=== PATIENT | male | born 1980 | race Caucasian/White ===

== ENCOUNTER 2016-09-27 13:22 | Observation (INO) | payer OTHER ==
[2016-09-26] MEDS: LACTATED RINGER'S 1000 ML INJ 1,000 ML IV SCH (21:30)
[~2016-09-27] VITALS: Ht 177.8 cm; Wt 93.8 kg
[2016-09-27] VITALS (7 sets, daily range): BP systolic 118–150; BP diastolic 67–88; PULSE 72–93; RESP 16–20; TEMP 97.9–98.5; O2SAT 92–99
[~2016-09-27 13:22] MED LIST: CIPR500T4 PO; COUG100S2 PO; NORC7.5T PO; ONDANSETRON HCL 4 MG/2 ML VIAL IV PUSH ONE; PROPOFOL 200 MG/20 ML AMP IV ONE
[2016-09-27] MEDS ORDERED: SODIUM CHLOR 0.9% 1000 ML INJ 1,000 ML IV SCH (14:17)
--- NOTE | 2016-09-27 14:19 | PD ---
HPI Chief Complaint: GI Complaint Time Seen by Provider: 13:54 Travel History International Travel<30 days: No Contact w/Intl Traveler<30days: No Traveled to known affect area: No PFSH Past Medical History Medical History: Denies Significant Hx Diminished Hearing: Yes Immunizations Current: No Tetanus Vaccination: Unknown Influenza Vaccination: No Past Surgical History Abdominal Surgery: Yes (bilateral inguinal hernia repairs) Ear Surgery: Yes (left ear surgery) Social History Alcohol Use: No Tobacco Use: Yes (1/2) Substance Use: Yes (POT) Allergies-Medications (Allergen,Severity, Reaction): Coded Allergies: Morphine (Verified Allergy, Severe, Anaphylaxis, 09/27/16) Reported Meds & Prescriptions Reported Meds & Active Scripts Active No Active Prescriptions or Reported Medications Data Data Last Documented VS Vital Signs Date Time Temp Pulse Resp B/P Pulse Ox O2 Delivery O2 Flow Rate FiO2 09/27/16 16:41 72 18 119/68 99 Room Air 09/27/16 13:31 98.5 Orders Complete Blood Count With Diff (09/27/16 14:17) Comprehensive Metabolic Panel (09/27/16 14:17) Lipase (09/27/16 14:17) Lactic Acid (09/27/16 14:17) Prothrombin Time / Inr (Pt) (09/27/16 14:17) Act Partial Throm Time (Ptt) (09/27/16 14:17) Urinalysis - C+S If Indicated (09/27/16 14:17) Iv Access Insert/Monitor (09/27/16 14:17) Ecg Monitoring (09/27/16 14:17) Oximetry (09/27/16 14:17) Ondansetron Inj (Zofran Inj) (09/27/16 14:30) Sodium Chlor 0.9% 1000 Ml Inj (Ns 1000 M (09/27/16 14:17) Sodium Chloride 0.9% Flush (Ns Flush) (09/27/16 14:30) Electrocardiogram (09/27/16 14:17) Ketorolac Inj (Toradol Inj) (09/27/16 14:30) Chest, Single Ap (09/27/16 ) Ct Abd/Pel W Iv Contrast(Rout) (09/27/16 ) Iohexol 350 Inj (Omnipaque 350 Inj) (09/27/16 16:28) Diet Npo (09/27/16 Dinner) Ampicillin-Sulbactam Inj (Unasyn Inj) (09/27/16 17:15) Admit Order (Ed Use Only) (09/27/16 ) Labs Laboratory Tests Test 09/27/16 09/27/16 11:20 15:00 White Blood Count 23.1 TH/MM3 Red Blood Count 5.41 MIL/MM3 Hemoglobin 16.1 GM/DL Hematocrit 47.3 % Mean Corpuscular Volume 87.4 FL Mean Corpuscular Hemoglobin 29.7 PG Mean Corpuscular Hemoglobin 34.0 % Concent Red Cell Distribution Width 12.4 % Platelet Count 320 TH/MM3 Mean Platelet Volume 7.7 FL Neutrophils (%) (Auto) 77.9 % Lymphocytes (%) (Auto) 12.7 % Monocytes (%) (Auto) 6.4 % Eosinophils (%) (Auto) 2.7 % Basophils (%) (Auto) 0.3 % Neutrophils # (Auto) 18.0 TH/MM3 Lymphocytes # (Auto) 2.9 TH/MM3 Monocytes # (Auto) 1.5 TH/MM3 Eosinophils # (Auto) 0.6 TH/MM3 Basophils # (Auto) 0.1 TH/MM3 CBC Comment AUTO DIFF Differential Comment AUTO DIFF CONFIRMED Prothrombin Time 11.4 SEC Prothromb Time International 1.0 RATIO Ratio Activated Partial 26.3 SEC Thromboplast Time Sodium Level 143 MEQ/L Potassium Level 4.0 MEQ/L Chloride Level 108 MEQ/L Carbon Dioxide Level 29.9 MEQ/L Anion Gap 5 MEQ/L Blood Urea Nitrogen 16 MG/DL Creatinine 0.98 MG/DL Estimat Glomerular Filtration 86 ML/MIN Rate Random Glucose 101 MG/DL Lactic Acid Level 1.0 mmol/L Calcium Level 9.3 MG/DL Total Bilirubin 1.0 MG/DL Aspartate Amino Transf 14 U/L (AST/SGOT) Alanine Aminotransferase 26 U/L (ALT/SGPT) Alkaline Phosphatase 66 U/L Total Protein 7.3 GM/DL Albumin 4.3 GM/DL Lipase 127 U/L Urine Collection Type CLEAN CATCH Urine Color YELLOW Urine Turbidity CLEAR Urine pH 5.5 Urine Specific [place] 1.018 Urine Protein NEG mg/dL Urine Glucose (UA) NEG mg/dL Urine Ketones 40 mg/dL Urine Occult Blood TRACE Urine Nitrite NEG Urine Bilirubin NEG Urine Leukocyte Esterase NEG Urine RBC 0-3 /hpf Urine Squamous Epithelial 0-5 /hpf Cells Urine Amorphous Sediment FEW Microscopic Urinalysis Comment CULT NOT INDICATED Urine Collection Time 1500 MDM Scripts No Active Prescriptions or Reported Meds Pj Alamo MD Sep 27, 2016 14:19
--- NOTE | 2016-09-27 14:29 | PD ---
HPI Chief Complaint: GI Complaint Time Seen by Provider: 13:54 Travel History International Travel<30 days: No Contact w/Intl Traveler<30days: No Traveled to known affect area: No History of Present Illness HPI 36 year old male presenting with diffuse abdominal pain starting 5 hours ago. The pain is achy in quality, severe, and fluctuating. Associated symptoms include nausea, vomiting, and chills. He denies recent illness and travel. He took pepto bismol without relief. No aggravating factors. Prior history of bilateral inguinal hernia repairs and hydrocele repair. No other abdominal surgeries. He denies hematemesis, diarrhea, constipation, hematochezia, dysuria , and hematuria. Patient states pain initially starting all over is now becoming more localized to the lower quadrants. He states the pain is fairly severe. [facility] Past Medical History Medical History: Denies Significant Hx Diminished Hearing: Yes Immunizations Current: No Tetanus Vaccination: Unknown Influenza Vaccination: No Past Surgical History Abdominal Surgery: Yes (bilateral inguinal hernia repairs) Ear Surgery: Yes (left ear surgery) Social History Alcohol Use: No Tobacco Use: Yes (1/2) Substance Use: Yes (POT) Allergies-Medications (Allergen,Severity, Reaction): Coded Allergies: Morphine (Verified Allergy, Severe, Anaphylaxis, 09/27/16) Reported Meds & Prescriptions Reported Meds & Active Scripts Active No Active Prescriptions or Reported Medications Review of Systems Except as stated in HPI: all other systems reviewed are Neg General / Constitutional: Positive: Chills, No: Fever Cardiovascular: No: Chest Pain or Discomfort Respiratory: No: Cough, Shortness of Breath Gastrointestinal: Positive: Nausea, Vomiting, Abdominal Pain, No: Diarrhea, Hematemesis, Hematochezia, Constipation, Changes in Bowel Habits Genitourinary: No: Hematuria Skin: No Rash Physical Exam Narrative GENERAL: Well developed and well nourished. Patient lying still in bed under blankets. SKIN: Warm and dry. HEAD: Atraumatic. Normocephalic. EYES: Pupils equal and round. No scleral icterus. No injection or drainage. ENT: No nasal bleeding or discharge. Mucous membranes pink and moist. NECK: Trachea midline. No JVD. CARDIOVASCULAR: Regular rate and rhythm. RESPIRATORY: No accessory muscle use. Clear to auscultation. Breath sounds equal bilaterally. GASTROINTESTINAL: Some voluntary guarding, tender to palpation in LLQ and RLQ, nondistended. Hepatic and splenic margins not palpable. Does have some perineal tenderness with percussion. Minimal rebound. MUSCULOSKELETAL: Extremities without clubbing, cyanosis, or edema. No obvious deformities. NEUROLOGICAL: Awake and alert. No obvious cranial nerve deficits. Motor grossly within normal limits. Five out of 5 muscle strength in the arms and legs. Normal speech. PSYCHIATRIC: Appropriate mood and affect; insight and judgment normal. Data Data Last Documented VS Vital Signs Date Time Temp Pulse Resp B/P Pulse Ox O2 Delivery O2 Flow Rate FiO2 09/27/16 16:41 72 18 119/68 99 Room Air 09/27/16 13:31 98.5 Orders Complete Blood Count With Diff (09/27/16 14:17) Comprehensive Metabolic Panel (09/27/16 14:17) Lipase (09/27/16 14:17) Lactic Acid (09/27/16 14:17) Prothrombin Time / Inr (Pt) (09/27/16 14:17) Act Partial Throm Time (Ptt) (09/27/16 14:17) Urinalysis - C+S If Indicated (09/27/16 14:17) Iv Access Insert/Monitor (09/27/16 14:17) Ecg Monitoring (09/27/16 14:17) Oximetry (09/27/16 14:17) Ondansetron Inj (Zofran Inj) (09/27/16 14:30) Sodium Chlor 0.9% 1000 Ml Inj (Ns 1000 M (09/27/16 14:17) Sodium Chloride 0.9% Flush (Ns Flush) (09/27/16 14:30) Electrocardiogram (09/27/16 14:17) Ketorolac Inj (Toradol Inj) (09/27/16 14:30) Chest, Single Ap (09/27/16 ) Ct Abd/Pel W Iv Contrast(Rout) (09/27/16 ) Iohexol 350 Inj (Omnipaque 350 Inj) (09/27/16 16:28) Diet Npo (09/27/16 Dinner) Ampicillin-Sulbactam Inj (Unasyn Inj) (09/27/16 17:15) Admit Order (Ed Use Only) (09/27/16 ) Labs Laboratory Tests Test 7/23/17 7/23/17 11:20 15:00 White Blood Count 23.1 TH/MM3 Red Blood Count 5.41 MIL/MM3 Hemoglobin 16.1 GM/DL Hematocrit 47.3 % Mean Corpuscular Volume 87.4 FL Mean Corpuscular Hemoglobin 29.7 PG Mean Corpuscular Hemoglobin 34.0 % Concent Red Cell Distribution Width 12.4 % Platelet Count 320 TH/MM3 Mean Platelet Volume 7.7 FL Neutrophils (%) (Auto) 77.9 % Lymphocytes (%) (Auto) 12.7 % Monocytes (%) (Auto) 6.4 % Eosinophils (%) (Auto) 2.7 % Basophils (%) (Auto) 0.3 % Neutrophils # (Auto) 18.0 TH/MM3 Lymphocytes # (Auto) 2.9 TH/MM3 Monocytes # (Auto) 1.5 TH/MM3 Eosinophils # (Auto) 0.6 TH/MM3 Basophils # (Auto) 0.1 TH/MM3 CBC Comment AUTO DIFF Differential Comment AUTO DIFF CONFIRMED Prothrombin Time 11.4 SEC Prothromb Time International 1.0 RATIO Ratio Activated Partial 26.3 SEC Thromboplast Time Sodium Level 143 MEQ/L Potassium Level 4.0 MEQ/L Chloride Level 108 MEQ/L Carbon Dioxide Level 29.9 MEQ/L Anion Gap 5 MEQ/L Blood Urea Nitrogen 16 MG/DL Creatinine 0.98 MG/DL Estimat Glomerular Filtration 86 ML/MIN Rate Random Glucose 101 MG/DL Lactic Acid Level 1.0 mmol/L Calcium Level 9.3 MG/DL Total Bilirubin 1.0 MG/DL Aspartate Amino Transf 14 U/L (AST/SGOT) Alanine Aminotransferase 26 U/L (ALT/SGPT) Alkaline Phosphatase 66 U/L Total Protein 7.3 GM/DL Albumin 4.3 GM/DL Lipase 127 U/L Urine Collection Type CLEAN CATCH Urine Color YELLOW Urine Turbidity CLEAR Urine pH 5.5 Urine Specific [place] 1.018 Urine Protein NEG mg/dL Urine Glucose (UA) NEG mg/dL Urine Ketones 40 mg/dL Urine Occult Blood TRACE Urine Nitrite NEG Urine Bilirubin NEG Urine Leukocyte Esterase NEG Urine RBC 0-3 /hpf Urine Squamous Epithelial 0-5 /hpf Cells Urine Amorphous Sediment FEW Microscopic Urinalysis Comment CULT NOT INDICATED Urine Collection Time 1500 MDM Medical Decision Making Medical Screen Exam Complete: Yes Emergency Medical Condition: Yes Differential Diagnosis Acute appendicitis, bowel rupture, SBO, cholecystitis, pancreatitis, ileitis, gastroenteritis. Narrative Course Patient roomed emergency department, appears quite uncomfortable. Given Toradol. Patient feeling better afterwards until reexamined. Still fairly tender becoming more localized pain in the lower quadrants. CT scan is indicated for appendicitis. His white blood cell count is elevated 22,000. CT abdomen reviewed: Last 24 hours Impressions Chest X-Ray 09/27/16 0000 Signed Impressions: Service Date/Time: Tuesday, September 27, 2016 14:32 - CONCLUSION: No acute cardiopulmonary disease. Kristie Velasquez MD Abdomen/Pelvis CT 09/27/16 0000 Signed Impressions: Service Date/Time: Tuesday, September 27, 2016 16:16 - CONCLUSION: 1. Appendix is slightly prominent at 11 mm. No significant inflammatory changes. Clinical correlation as to whether patient has a white count and tenderness in the right lower quadrant. Close followup recommended. 2. Subcentimeter hepatic and renal low densities, likely cysts. Mark Robbins MD Given clinical impression the patient and think he is highly likely for appendicitis, it was discussed with Dr. Arreola was examined him and agrees and the plan is for operating room today. He was given Unasyn prior to going upstairs. Offered additional pain medicine and declined. Diagnosis Primary Impression: Acute appendicitis Qualified Code: K35.3 - Acute appendicitis with localized peritonitis Admitting Information Admitting Physician Requests: Admit Scripts No Active Prescriptions or Reported Meds Condition: Stable Pj Alamo MD Sep 27, 2016 14:28
[2016-09-27] MEDS ORDERED: ONDANSETRON HCL 4 MG/2 ML VIAL IVP ONE (14:30)
[2016-09-27] MEDS ORDERED: SODIUM CHLORIDE 0.9% FLUSH 10 ML FLUSH IV FLUSH PRN ×2 (14:30→20:15)
[2016-09-27] MEDS ORDERED: KETOROLAC TROMETHAMINE 30 MG/ML (IVP) VIAL IVP ONE (14:30)
[2016-09-27 14:35] LABS: BASOPHIL # 0.1 TH/MM3 (0-0.2); BASOPHIL % 0.3 % (0.0-2.0); EOSINOPHIL # 0.6 TH/MM3 (0-0.4); EOSINOPHIL % 2.7 % (0.0-4.0); HEMATOCRIT 47.3 % (39.0-51.0); LYMPH % 12.7 % (9.0-44.0); LYMPHOCYTE # 2.9 TH/MM3 (1.0-4.8); MEAN CELL VOLUME 87.4 FL (80.0-100.0); MEAN CORPUSCULAR HEMOGLOBIN 29.7 PG (27.0-34.0); MONO % 6.4 % (0.0-8.0); NEUT % 77.9 % (16.0-70.0); PLATELET COUNT 320 TH/MM3 (150-450); RED BLOOD COUNT 5.41 MIL/MM3 (4.50-5.90); RED CELL DISTRIBUTION WIDTH 12.4 % (11.6-17.2); WHITE BLOOD COUNT 23.1 TH/MM3 (4.0-11.0)
[2016-09-27 14:38] LABS: HEMO FLAGS AUTO DIFF
[2016-09-27 14:45] LABS: CHLORIDE 108 MEQ/L (98-107); SODIUM (NA) 143 MEQ/L (136-145)
[2016-09-27 14:51] LABS: ANION GAP 5 MEQ/L (5-15); BICARBONATE 29.9 MEQ/L (21.0-32.0); BLOOD UREA NITROGEN 16 MG/DL (7-18)
[2016-09-27 14:53] LABS: ALT (GPT) 26 U/L (12-78)
[2016-09-27 14:54] LABS: AST (GOT) 14 U/L (15-37); GLOMERULAR FILTRATION RATE 86 ML/MIN (>89); SCAN/DIFF AUTO DIFF CONFIRMED
--- NOTE | 2016-09-27 14:54 | RADRPT ---
EXAM DATE/TIME: 09/27/2016 14:32 [facility] COMPARISON: CHEST PA & LAT, March 08, 2015, 20:36. INDICATIONS : Free air, abdomen pain today, cramps, nausea, vomiting MEDICAL HISTORY : None. SURGICAL HISTORY : None. ENCOUNTER: Initial ACUITY: 1 day PAIN SCORE: 0/10 LOCATION: Bilateral chest FINDINGS: The lungs are clear without infiltrate, nodule, or mass. There is no appreciable pleural effusion fo r technique. Heart and mediastinum are unremarkable. There is old healed right clavicular fracture. CONCLUSION: No acute cardiopulmonary disease. Kristie Velasquez MD on September 27, 2016 at 14:52 Board Certified Radiologist. This report was verified electronically.
[2016-09-27 14:56] LABS: ALKALINE PHOSPHATASE 66 U/L (45-117)
[2016-09-27 15:20] LABS: APTT (PATIENT) 26.3 SEC (24.3-30.1); PROTHROMBIN TIME - PATIENT 11.4 SEC (9.8-11.6)
[2016-09-27 15:50] LABS: BLOOD, URINE TRACE (NEG); GLUCOSE,URINE NEG (NEG); KETONE, URINE 40 mg/dL (NEG); NITRITE,URINE NEG (NEG); PH, URINE 5.5 (5.0-8.5)
[2016-09-27 16:05] LABS: METHOD OF COLLECTION CLEAN CATCH; RBC, URINE 0-3 /hpf (0-3); URINE COLOR YELLOW (YELLW/STRAW)
[2016-09-27 16:06] LABS: COMMENT (UR) CULT NOT INDICATED; COMMENT2 (UR) MUCOUS PRESENT; CULTURE IF INDICATED CULT NOT INDICATED; SQUAMOUS EPITHELIAL CELL URINE 0-5 /hpf (0-5)
[2016-09-27] MEDS ORDERED: IOHEXOL 350 MG/ML 10 ML VIAL (for RAD DIAG) IV ONE (16:28)
--- NOTE | 2016-09-27 16:40 | RADRPT ---
EXAM DATE/TIME: 09/27/2016 16:16 [facility] COMPARISON: No previous studies available for comparison. INDICATIONS : Lower abdominal pain. IV CONTRAST: 95 cc Omnipaque 350 (iohexol) IV ORAL CONTRAST: No oral contrast ingested. RADIATION DOSE: 13.71 CTDIvol (mGy) MEDICAL HISTORY : None SURGICAL HISTORY : Inguinal hernia repair. ENCOUNTER: Initial ACUITY: 1 day PAIN SCALE: 6/10 LOCATION: lower quadrant TECHNIQUE: Volumetric scanning of the abdomen and pelvis was performed. Using automated exposure control and ad justment of the mA and/or kV according to patient size, radiation dose was kept as low as reasonably achievable to obtain optimal diagnostic quality images. DICOM format image data is available electro nically for review and comparison. FINDINGS: LOWER LUNGS: The visualized lower lungs are clear. LIVER: Homogeneous density without lesion. There is no dilation of the biliary tree. No calcified gallston es. Subcentimeter low densities. SPLEEN: Normal size without lesion. PANCREAS: Within normal limits. KIDNEYS: Normal in size and shape. There is no mass, stone or hydronephrosis. Subcentimeter low densities. ADRENAL GLANDS: Within normal limits. VASCULAR: There is no aortic aneurysm. BOWEL/MESENTERY: The stomach, small bowel, and colon demonstrate no acute abnormality. There is no free intraperitone al air or fluid. The appendix is slightly prominent. Measuring 11 mm. No significant inflammatory hiram nges. Punctate appendicolith seen. Scattered small mesenteric lymph nodes which are pathologically en larged. ABDOMINAL WALL: Within normal limits. RETROPERITONEUM: There is no lymphadenopathy. BLADDER: No wall thickening or mass. REPRODUCTIVE: Within normal limits. INGUINAL: There is no lymphadenopathy or hernia. MUSCULOSKELETAL: Within normal limits for patient age. CONCLUSION: 1. Appendix is slightly prominent at 11 mm. No significant inflammatory changes. Clinical correlation as to whether patient has a white count and tenderness in the right lower quadrant. Close followup r ecommended. 2. Subcentimeter hepatic and renal low densities, likely cysts. Mark Robbins MD on September 27, 2016 at 16:35 Board Certified Radiologist. This report was verified electronically.
--- NOTE | 2016-09-27 16:51 | EKG ---
Date Performed: 09/27/2016 Time Performed: 14:40:48 PTAGE: 36 years EKG: Sinus rhythm T-WAVE ABNORMALITY, CONSIDER LATERAL ISCHEMIA T-WAVE ABNORMALITY, CONSIDER INFERIOR ISCHEMIA ABNORMA L ECG NO PREVIOUS TRACING DOCTOR: Ke Norton Interpretating Date/Time 09/27/2016 16:49:42
[2016-09-27] MEDS ORDERED: AMPICILLIN-SULBACTAM INJ 3 GM in SODIUM CHLORIDE 0.9% INJ 100 ML IV ONE (17:15)
[2016-09-27] MEDS ORDERED: BUPIVACAINE/EPINEPHRINE 0.25% PF 30 ML VIAL ONE (18:05)
--- NOTE | 2016-09-27 18:18 | MH ---
cc: NUSRAT HAWKINS M.D. DATE OF ADMISSION 09/27/2016 REASON FOR ADMISSION Acute appendicitis. HISTORY OF THE PRESENT ILLNESS This is a 36-year-old gentleman who came into the emergency room after experiencing some right lower quadrant periumbilical pain, woke him up about 9 o'clock this morning. It progressed and he came to the emergency room where a workup ensued. He was found to have an elevated white count of about 23,000. CT scan showed inflamed appendix, surgery was called. PAST MEDICAL HISTORY Negative for any chronic medical problems. No heart or lung problems. No GI complaints. Never had any pain like this. PAST SURGICAL HISTORY He has had bilateral inguinal hernias repaired in the past ALLERGIES HE HAS A REACTION TO MORPHINE, MAKES HIM HALLUCINATE AND ANGRY. MEDICATIONS He does not take any routine medications. Last meal was yesterday. PHYSICAL EXAMINATION GENERAL: He is alert and oriented. He has been given some pain medications. He points to his right lower quadrant at McBurney's point where he is tender. NECK: Supple. CHEST: Clear. HEART: Regular rate. ABDOMEN: Slightly obese. Soft with rebound and guarding right lower quadrant, McBurney's Point. EXTREMITIES: Moves all extremities. No clubbing, cyanosis or edema. NEUROLOGIC: Alert and oriented times three without focal deficits. LABORATORY DATA White count 23,000. H&H 16, 47 with a shift. Coags normal. Complete metabolic profile essentially normal. Lactic acids 1.0. Urine clear. IMAGING Of the chest shows no problem. CT abdomen and pelvis findings highly suspicious for appendicitis. ASSESSMENT Pleasant, healthy 36-year-old gentleman with classic signs and symptomatology consistent with appendicitis. PLAN Operative intervention. Discussed in detail with the patient about laparoscopic appendectomy. He appears to understand. We discussed with the family as well. MD KAILYN Bettencourt/LINDSAY /6:00 PM /6:11 PM SANTI
[2016-09-27] MEDS ORDERED: *MEPERIDINE 25 MG INJ VIAL PERIprocedural Use ONLY ONE (20:11)
[2016-09-27] MEDS ORDERED: ACETAMINOPHEN 1000 MG/100 ML VIAL IV ONE (20:13)
[2016-09-27] MEDS ORDERED: NORC5TAB PO (20:14)
[2016-09-27] MEDS ORDERED: ACETAMINOPHEN/HYDROcodone 325 MG/5 MG TAB PO PRN ×2 (20:15)
[2016-09-27] MEDS ORDERED: ONDANSETRON HCL 4 MG/2 ML VIAL IV PRN (20:15)
[2016-09-27] MEDS ORDERED: ZOLPIDEM TARTRATE 5 MG TAB PO PRN (20:15)
[2016-09-27] MEDS ORDERED: HYDROmorphone HCL PF 1 MG/ML VIAL IV PRN (20:15)
[2016-09-27] MEDS ORDERED: ACETAMINOPHEN 325 MG TAB PO PRN (20:15)
[2016-09-27] MEDS ORDERED: Post-op Orders (for Pharmacy) MISC XX ONE (20:15)
[2016-09-27] MEDS: SODIUM CHLORIDE 0.9% FLUSH 10 ML FLUSH IV FLUSH SCH (21:00)
[2016-09-28] VITALS: BP 122/70; PULSE 78; RESP 20; TEMP 97.7; O2SAT 98
[2016-09-28] MEDS ORDERED: ACETAMINOPHEN 1000 MG/100 ML VIAL IV SCH (04:00)
[2016-09-28] MEDS: LACTATED RINGER'S 1000 ML INJ 1,000 ML IV SCH (04:56)
[2016-09-28 08:00] VITALS: BP 115/66; PULSE 76; RESP 18; TEMP 97.8; O2SAT 96
[2016-09-28] MEDS: SODIUM CHLORIDE 0.9% FLUSH 10 ML FLUSH IV FLUSH SCH (09:13)
--- NOTE | 2016-09-29 11:57 | MP ---
cc: NUSRAT ARREOLA M.D. DATE OF SURGERY: 09/27/2016 PREOPERATIVE DIAGNOSIS Appendicitis with right lower quadrant pain. POSTOPERATIVE DIAGNOSIS Appendicitis, retrocecal. PROCEDURE Laparoscopic appendectomy. ANESTHESIA General. SURGEON Dr. Arreola. INDICATION This is a 36-year-old gentleman who was found to have all the signs and symptoms consistent with acute appendicitis. Plans were made for above. DETAILS OF PROCEDURE The patient was taken to the operating room and placed in supine position. After anesthesia his abdomen is prepped with Betadine and a timeout is done. He was given preoperative antibiotics. We make an incision above the umbilicus after anesthetizing with Marcaine solution. A Veress needle is inserted. A saline load since is performed. The abdomen is insufflated to 15 mmHg. A 10 mm trocar is introduced. The camera is introduced. Two other working ports are placed, a 5 mm above the pubic tubercle and a 5 mm in between the two previously placed ports. The appendix can be seen somewhat retrocecal. We placed the camera down the suprapubic port site to visualize the appendix. It is somewhat curled upon itself and retrocecal. We are able to elevate it out using blunt dissection and hydrodissection, take the mesentery down with a Harmonic scalpel to the base of the appendix. It does not appear to be perforated but obviously inflamed. The base of the appendix is then tied off with two Endo ties. The appendix is then amputated, placed in an EndoCatch, pulled out through the umbilical incision and passed off the field. We then irrigate copiously. Hemostasis is assured with the Harmonic scalpel along the appendiceal mesentery. No other gross abnormality is seen. We then irrigate down the pelvis, evacuate some cloudy fluid. The liver is smooth. The peritoneal surfaces are smooth. No other gross abnormality is seen. After the irrigating solution and CO2 is removed we then remove all trocars. The umbilical port site is closed with 0 Vicryl at the fascial layer and skin closed with 4-0 Vicryl. Steri-Strips are applied. Sterile bandage applied. The patient tolerated the procedure well and had no immediate post-op complication. Intraoperative findings were discussed with the family. Nusrat Arreola MD JTOMI/NELY /8:13 PM /11:53 AM
== END 2016-09-28 10:19 | disposition home or self-care (01) ==
LOC: PHED 13:22 → INTOOBSV 17:33 → PHEDA 17:33 → PH3A 21:05
PROVIDERS: ADMIT Surgery; ATTEND Surgery
DX: K35.3 Acute appendicitis with localized peritonitis (principal); R94.31 Abnormal electrocardiogram [ECG] [EKG]; H91.90 Unspecified hearing loss, unspecified ear; F17.200 Nicotine dependence, unspecified, uncomplicated
CPT/HCPCS: 00840; 44970; 71010; 74177; 80053; 81001; 83605; 83690; 85025; 85610; 85730; 88304; 93005; 94150; 96361; 96374; 96375; 99285; G0378; J0131; J0295; J1885; J2175; J2405; J7030; J7120; Q9967

== ENCOUNTER 2016-10-14 16:00 | Emergency (ER) | payer OTHER ==
[~2016-10-14] VITALS: Ht 177.8 cm; Wt 89.0 kg
[~2016-10-14 16:00] MED LIST changes: -CIPR500T4 PO; -COUG100S2 PO; +NORC5TAB PO; -NORC7.5T PO; -ONDANSETRON HCL 4 MG/2 ML VIAL IV PUSH ONE; -PROPOFOL 200 MG/20 ML AMP IV ONE
[2016-10-14 16:02] VITALS: BP 130/80; PULSE 86; RESP 20; TEMP 98.8; O2SAT 96
--- NOTE | 2016-10-14 16:06 | PD ---
Physical Exam Date Seen by Provider: Oct 14, 2016 Time Seen by Provider: 16:05 Narrative 36 yo male here for medical clearance. had appendectomy on September 27. Released to go back to work today but felt "weird" all day and had possible blood in stool. Feeling lightheaded. No chest pain or SOB. Symptoms started today. Dr Arreola sent him here for eval. Vitals are stable in triage. Awaiting Bed placement. Data Data Last Documented VS Vital Signs Date Time Temp Pulse Resp B/P Pulse Ox O2 Delivery O2 Flow Rate FiO2 10/14/16 16:02 98.8 86 20 130/80 96 Room Air [facility] Medical Record Reviewed: Yes Supervised Visit with ALVARADO: No Bg Bolton Oct 14, 2016 16:06
[2016-10-15] MEDS ORDERED: PROC5TAB PO ×2 (09:06→11:06)
== END 2016-10-14 18:45 | disposition left against medical advice (07) ==
LOC: NED 16:00
DX: R42 Dizziness and giddiness (principal)
CPT/HCPCS: 99281

== ENCOUNTER 2016-10-15 08:39 | Emergency (ER) | payer OTHER ==
[~2016-10-15] VITALS: Ht 177.8 cm; Wt 84.5 kg
[2016-10-15 08:41] VITALS: BP 124/78; PULSE 77; RESP 16; TEMP 97.8; O2SAT 97
--- NOTE | 2016-10-15 09:03 | PD ---
HPI Chief Complaint: abdominal pain Time Seen by Provider: 08:48 Travel History International Travel<30 days: No Contact w/Intl Traveler<30days: No Traveled to known affect area: No History of Present Illness HPI This 36-year-old male presents with complaint of abdominal pain. He's been having some lower abdominal pain the last few days. On September 27 is seen here and found to have appendicitis by CT scan. He was taken to the operating room by Dr. Arreola. He has been having intermittent nausea since then. He has occasional vomiting after eating. He has been using some pills for nausea. Besides the appendectomy he has had 2 inguinal hernias operated on. He's also had surgery on his years for cholesteatoma and does wear hearing aids. He has frequent episodes of dizziness and lightheadedness. He thought that might of been some blood in his stool yesterday. Today he has had several bouts of diarrhea. He is having lower abdominal pain. He does admit to having considerable stress from his job he was due to go back to work. He has had some weight loss PFSH Past Medical History Blood Disorders: No Cancer: No Cardiovascular Problems: No Chemotherapy: No Diminished Hearing: Yes Endocrine: No Genitourinary: No Immune Disorder: No Musculoskeletal: No Neurologic: No Psychiatric: No Reproductive: No Respiratory: No Immunizations Current: No Radiation Therapy: No Past Surgical History Abdominal Surgery: Yes (bilateral inguinal hernia repairs) Ear Surgery: Yes (left ear surgery) Pacemaker: No Social History Alcohol Use: No Tobacco Use: Yes (1/2) Substance Use: No Allergies-Medications (Allergen,Severity, Reaction): Coded Allergies: Morphine (Verified Allergy, Severe, Anaphylaxis, 10/15/16) Reported Meds & Prescriptions Reported Meds & Active Scripts Active Reported Prochlorperazine Maleate 5 Mg Tab 5 Mg PO Q4H PRN Review of Systems General / Constitutional: No: Fever, Chills HENT: Positive: Other (hearing aids), No: Headaches Cardiovascular: No: Chest Pain or Discomfort, Palpitations Respiratory: No: Cough, Shortness of Breath Gastrointestinal: Positive: Nausea, Vomiting, Diarrhea, Abdominal Pain Genitourinary: No: Frequency, Dysuria Musculoskeletal: No: Myalgias, Arthralgias Skin: No Rash Neurologic: No: Weakness, Dizziness Endocrine: No: Heat Intolerance, Cold Intolerance Hematologic/Lymphatic: No: Easy Bruising Physical Exam Narrative GENERAL: Well-developed male SKIN: Focused skin assessment warm/dry. HEAD: Atraumatic. Normocephalic. EYES: Pupils equal and round. No scleral icterus. No injection or drainage. ENT: No nasal bleeding or discharge. Mucous membranes pink and moist. NECK: Trachea midline. No JVD. CARDIOVASCULAR: Regular rate and rhythm. No murmur appreciated. RESPIRATORY: No accessory muscle use. Clear to auscultation. Breath sounds equal bilaterally. GASTROINTESTINAL: Abdomen soft, mild lower abdominal tenderness, nondistended. Hepatic and splenic margins not palpable. Surgical incisions healing without evidence of infection MUSCULOSKELETAL: No obvious deformities. No clubbing. No cyanosis. No edema. NEUROLOGICAL: Awake and alert. No obvious cranial nerve deficits. Motor grossly within normal limits. Normal speech. PSYCHIATRIC: Appropriate mood and affect; insight and judgment normal. Data Data Last Documented VS Vital Signs Date Time Temp Pulse Resp B/P Pulse Ox O2 Delivery O2 Flow Rate FiO2 10/15/16 09:02 16 10/15/16 08:41 97.8 77 124/78 97 Orders Complete Blood Count With Diff (10/15/16 08:58) Comprehensive Metabolic Panel (10/15/16 08:58) Urinalysis - C+S If Indicated (10/15/16 08:58) Enteric Path (Stool) (10/15/16 08:58) C Diff Toxin Pcr (10/15/16 08:58) Ct Abd/Pel W Iv Contrast(Rout) (10/15/16 08:58) Iohexol 350 Inj (Omnipaque 350 Inj) (10/15/16 09:51) Labs Laboratory Tests Test 10/15/16 10/15/16 09:13 10:41 White Blood Count 9.2 TH/MM3 Red Blood Count 5.18 MIL/MM3 Hemoglobin 15.0 GM/DL Hematocrit 45.4 % Mean Corpuscular Volume 87.6 FL Mean Corpuscular Hemoglobin 29.0 PG Mean Corpuscular Hemoglobin 33.0 % Concent Red Cell Distribution Width 12.6 % Platelet Count 375 TH/MM3 Mean Platelet Volume 7.1 FL Neutrophils (%) (Auto) 59.0 % Lymphocytes (%) (Auto) 28.7 % Monocytes (%) (Auto) 7.0 % Eosinophils (%) (Auto) 4.8 % Basophils (%) (Auto) 0.5 % Neutrophils # (Auto) 5.6 TH/MM3 Lymphocytes # (Auto) 2.6 TH/MM3 Monocytes # (Auto) 0.6 TH/MM3 Eosinophils # (Auto) 0.4 TH/MM3 Basophils # (Auto) 0.0 TH/MM3 CBC Comment DIFF FINAL Differential Comment Sodium Level 142 MEQ/L Potassium Level 3.9 MEQ/L Chloride Level 106 MEQ/L Carbon Dioxide Level 25.0 MEQ/L Anion Gap 11 MEQ/L Blood Urea Nitrogen 15 MG/DL Creatinine 0.90 MG/DL Estimat Glomerular Filtration 94 ML/MIN Rate Random Glucose 103 MG/DL Calcium Level 8.8 MG/DL Total Bilirubin 0.7 MG/DL Aspartate Amino Transf 11 U/L (AST/SGOT) Alanine Aminotransferase 25 U/L (ALT/SGPT) Alkaline Phosphatase 75 U/L Total Protein 7.2 GM/DL Albumin 4.0 GM/DL Urine Collection Type CLEAN CATCH Urine Color YELLOW Urine Turbidity CLEAR Urine pH 6.5 Urine Specific [place] 1.020 Urine Protein NEG mg/dL Urine Glucose (UA) NEG mg/dL Urine Ketones NEG mg/dL Urine Occult Blood TRACE Urine Nitrite NEG Urine Bilirubin NEG Urine Leukocyte Esterase NEG Urine RBC 0-3 /hpf Urine Squamous Epithelial 6-8 /hpf Cells Microscopic Urinalysis Comment CULT NOT INDICATED Urine Collection Time 10:41 MDM Medical Decision Making Medical Screen Exam Complete: Yes Emergency Medical Condition: Yes Medical Record Reviewed: Yes Differential Diagnosis Differential includes postoperative abscess, enteritis, postoperative pain Narrative Course White count is normal. A CT scan is negative. Patient is stable for discharge. He will be put off work for 2 more days. Diagnosis Primary Impression: Postoperative pain Departure Forms: Tests/Procedures, Work Release Enter return to work date: Oct 19, 2016 Scripts Prochlorperazine Maleate 5 Mg Tab5 Mg PO Q4H PRN (NAUSEA OR VOMITING) #15 TAB Ref 0 Prov:Marshall Guzman MD 10/15/16 Disposition: 01 DISCHARGE HOME Condition: Stable Marshall Guzman MD Oct 15, 2016 09:03
[2016-10-15] MEDS ORDERED: PROC5TAB PO ×2 (09:06→11:06)
[2016-10-15 09:20] LABS: AUTOMATED NEUTROPHIL # 5.6 TH/MM3 (1.8-7.7); BASOPHIL % 0.5 % (0.0-2.0); EOSINOPHIL # 0.4 TH/MM3 (0-0.4); EOSINOPHIL % 4.8 % (0.0-4.0); HEMATOCRIT 45.4 % (39.0-51.0); HEMO FLAGS DIFF FINAL; LYMPH % 28.7 % (9.0-44.0); LYMPHOCYTE # 2.6 TH/MM3 (1.0-4.8); MEAN CELL VOLUME 87.6 FL (80.0-100.0); PLATELET COUNT 375 TH/MM3 (150-450); RED BLOOD COUNT 5.18 MIL/MM3 (4.50-5.90); RED CELL DISTRIBUTION WIDTH 12.6 % (11.6-17.2); WHITE BLOOD COUNT 9.2 TH/MM3 (4.0-11.0)
[2016-10-15 09:28] LABS: BLOOD UREA NITROGEN 15 MG/DL (7-18); CHLORIDE 106 MEQ/L (98-107); GLOMERULAR FILTRATION RATE 94 ML/MIN (>89); POTASSIUM 3.9 MEQ/L (3.5-5.1); SODIUM (NA) 142 MEQ/L (136-145)
[2016-10-15] MEDS ORDERED: IOHEXOL 350 MG/ML 10 ML VIAL (for RAD DIAG) IV ONE (09:51)
[2016-10-15 10:06] LABS: ANION GAP 11 MEQ/L (5-15)
--- NOTE | 2016-10-15 10:06 | RADRPT ---
EXAM DATE/TIME: 10/15/2016 09:47 [facility] COMPARISON: No previous studies available for comparison. INDICATIONS : Lower abdominal pain. Nausea and intermittent vomiting since appendectomy on 09/27/16. Diarrhea toda y. IV CONTRAST: 85 cc Omnipaque 350 (iohexol) IV ORAL CONTRAST: No oral contrast ingested. RADIATION DOSE: 12.72 CTDIvol (mGy) MEDICAL HISTORY : None SURGICAL HISTORY : Appendectomy. Inguinal hernia repair. ENCOUNTER: Initial ACUITY: 2 weeks PAIN SCALE: 3/10 LOCATION: Bilateral lower quadrant TECHNIQUE: Volumetric scanning of the abdomen and pelvis was performed. Using automated exposure control and ad justment of the mA and/or kV according to patient size, radiation dose was kept as low as reasonably achievable to obtain optimal diagnostic quality images. DICOM format image data is available electro nically for review and comparison. FINDINGS: LOWER LUNGS: The visualized lower lungs are clear. LIVER: Several tiny hepatic cysts. No suspicious mass or biliary ductal dilatation. Gallbladder is focally u nremarkable SPLEEN: Normal size without lesion. PANCREAS: Within normal limits. KIDNEYS: Small cyst in the midpole cortex of the right kidney. No suspicious mass, stone or hydronephrosis. ADRENAL GLANDS: Within normal limits. VASCULAR: There is no aortic aneurysm. BOWEL/MESENTERY: The stomach, small bowel, and colon demonstrate no acute abnormality. There is no free intraperitone al air or fluid. ABDOMINAL WALL: Within normal limits. RETROPERITONEUM: There is no lymphadenopathy. BLADDER: No wall thickening or mass. REPRODUCTIVE: Within normal limits. INGUINAL: There is no lymphadenopathy or hernia. MUSCULOSKELETAL: Within normal limits for patient age. CONCLUSION: No acute CT findings in the abdomen or pelvis. Abdoulaye Valentin MD on October 15, 2016 at 10:01 Board Certified Radiologist. This report was verified electronically.
[2016-10-15 10:09] LABS: AST (GOT) 11 U/L (15-37)
[2016-10-15 10:12] LABS: ALKALINE PHOSPHATASE 75 U/L (45-117)
[2016-10-15 10:21] LABS: ALT (GPT) 25 U/L (12-78)
[2016-10-15 10:24] LABS: TOTAL BILIRUBIN ADULT 0.7 MG/DL (0.2-1.0)
[2016-10-15 10:45] LABS: BLOOD, URINE TRACE (NEG); GLUCOSE,URINE NEG (NEG); KETONE, URINE NEG (NEG); NITRITE,URINE NEG (NEG)
[2016-10-15 10:58] LABS: METHOD OF COLLECTION CLEAN CATCH; PH, URINE 6.5 (5.0-8.5); RBC, URINE 0-3 /hpf (0-3); URINE COLOR YELLOW (YELLW/STRAW)
[2016-10-15 10:59] LABS: COMMENT (UR) CULT NOT INDICATED; CULTURE IF INDICATED CULT NOT INDICATED
[2016-10-15 11:30] VITALS: BP 117/69
== END 2016-10-15 11:32 | disposition home or self-care (01) ==
LOC: PHED 08:39
DX: G89.18 Other acute postprocedural pain (principal); H91.90 Unspecified hearing loss, unspecified ear; F17.210 Nicotine dependence, cigarettes, uncomplicated; R42 Dizziness and giddiness
CPT/HCPCS: 74177; 80053; 81001; 85025; 99285; Q9967